=== PATIENT | male | born 1935 | race Caucasian/White ===

== ENCOUNTER 2019-04-22 19:15 | Inpatient (IN) | payer OTHER ==
[2019-04-22] MEDS ORDERED: predniSONE 20 MG TAB ONE (19:56)
[2019-04-22] MEDS ORDERED: methylPREDNISolone Sod Succ/PF 125 MG/2 ML VIAL ONE (20:08)
[2019-04-22 20:12] LABS: Mean Corpuscular HGB CONC 33.3 g/dL (32.0-36.0); Mean Corpuscular Hemoglobin 30.6 pg (27.0-31.0); Mean Corpuscular Volume 91.8 fL (78.0-98.0); Mean Platelet Volume 8.9 fL (7.4-10.4); Platelet Count 316 thou/uL (130-400); RBC Distribution Width 12.7 % (11.5-14.5); Red Blood Cell (RBC) Count 4.26 mill/uL (4.70-6.10); White Blood Cell (WBC) Count 9.6 thou/uL (4.8-10.8)
--- NOTE | 2019-04-22 20:20 | RAD ---
SINGLE VIEW OF THE CHEST: 04/22/19 COMPARISON: None. HISTORY: Dyspnea. FINDINGS: Single view of the chest shows a normal sized heart and mediastinal silhouette. Mixed alveolar/inters titial opacities are seen in the left lung which are more prominent in the left base. IMPRESSION: Mixed infiltrates in the left chest. POS: [facility]
[2019-04-22 20:27] LABS: Band 1 % (5-11); Lymphocytes 3 % (21-51); MDiff Complete? YES; Monocytes 2 % (0-10); Neutrophil 94 % (42-75); Platelet Morphology Comment Appears Adequate; RBC Morphology Normal
[2019-04-22 20:30] LABS: ALT (SGPT) 21 U/L (8-55); AST (SGOT) 23 U/L (5-34); Albumin 3.7 g/dL (3.4-4.8); Alkaline Phosphatase 118 U/L (40-110); Anion Gap 21 mmol/L (10-20); BUN (Urea Nitrogen) 30 mg/dL (8.4-25.7); Bilirubin, Total 0.5 mg/dL (0.2-1.2); Calc. Creatinine Clearance 0 mL/min (70-130); Calcium 9.5 mg/dL (7.8-10.44); Carbon Dioxide 22 mmol/L (23-31); Chloride 99 mmol/L (98-107); Estimated GFR-MDRD 56; Globulin 4.2 g/dL (2.4-3.5); Glucose 198 mg/dL (83-110); Potassium 4.7 mmol/L (3.5-5.1); Protein, Total 7.9 g/dL (5.8-8.1); Sodium 137 mmol/L (136-145)
[2019-04-22 20:58] LABS: Acetaminophen Less than 6.0 mcg/mL (10.0-30.0); Alcohol Less than 10 mg/dL (Less than 10); Salicylate Less than 8.0 mg/dL (15.0-30.0)
[2019-04-22 21:37] LABS: Lactic Acid 1.2 mmol/L (0.5-2.2)
[2019-04-22] MEDS ORDERED: cefTRIAXone\\ROCEPHIN 1 GM VIAL ONE (23:36)
[2019-04-23 01:25] VITALS: BMI 27.1
[2019-04-23] MEDS ORDERED: Acetaminophen 650 MG Suppository PR PRN (11:00)
[2019-04-23] MEDS ORDERED: Bisacodyl 5 MG TAB PO PRN (11:00)
[2019-04-23] MEDS ORDERED: Acetaminophen 325 MG TAB PO PRN (11:00)
[2019-04-23] MEDS ORDERED: Dextrose 50% Abboject 50 ML SYRINGE SLOW IVP PRN (13:31)
[2019-04-23] MEDS ORDERED: Dextrose 5% in Water 1,000 ML IV PRN (13:31)
[2019-04-23] MEDS: methylPREDNISolone Sod Succ 40 MG VIAL IVP SCH ×3 (13:32→23:14)
[2019-04-23] MEDS: Azithromycin 500 MG in Sodium Chloride 0.9% 250 ML 250 ML IVPB SCH (13:32)
[2019-04-23] MEDS ORDERED: Cyanocobalamin 1000 MCG/ML VIAL IM SCH (13:45)
[2019-04-23] MEDS: HumaLOG 300 UNITS/3 ML VIAL SC PRN ×3 (13:54→21:11)
[2019-04-23] MEDS ORDERED: Insulin Glargine 10 UNITS in Pre-Filled Syringe 1 EACH SC SCH (14:00)
[2019-04-23] MEDS ORDERED: glipiZIDE 10 MG TAB PO SCH ×3 (14:15→21:00)
[2019-04-23] MEDS: Calcium Carbonate + Vit D 250 MG TAB PO SCH ×2 (14:47→21:09)
--- NOTE | 2019-04-23 15:50 | HP ---
PRIMARY CARE PROVIDER: Unknown. CHIEF COMPLAINT: Shortness of breath. HISTORY OF PRESENT ILLNESS: Mr. Arteaga is a pleasant 84-year-old gentleman, an inmate at [facility], who was seen at [facility] on April 23, 2019. He reports that he developed a dry cough about one and half weeks ago. He denies any fevers. He reports that he has been using oxygen at 3 L/minute from 2 a.m. to 8 a.m., as well as when he takes naps. Prior to one and half weeks ago, he was not using oxygen. He also reports using his inhaler a lot without improvement in shortness of breath. He reports shortness of breath with exertion. He denies paroxysmal nocturnal dyspnea or orthopnea. REVIEW OF SYSTEMS: All systems were reviewed and found to be negative except for the pertinent positives mentioned above. PAST MEDICAL HISTORY: Diabetes mellitus type 2, COPD, emphysema, asthma, osteoarthritis, colon cancer, and right lower quadrant hernia. PAST SURGICAL HISTORY: Appendectomy, tonsillectomy, adenoidectomy, and colon resection. SOCIAL HISTORY: The patient denies tobacco use, alcohol use, or recreational drug use. FAMILY HISTORY: No family history of premature coronary artery disease. CODE STATUS: I discussed his code status. He is full code. ALLERGIES: NO KNOWN DRUG ALLERGIES. CURRENT MEDICATIONS: 1. Albuterol nebulizer p.r.n. 2. Aspirin 81 mg daily. 3. Calcium carbonate/vitamin D3 one tablet three times a day. 4. Vitamin B12 of 1000 mcg intramuscularly every month. 5. Flovent HFA 2 puffs 2 times a day. 6. Glipizide 10 mg 2 times a day. PHYSICAL EXAMINATION: GENERAL: On examination, Mr. Arteaga is awake and alert, not in acute distress. VITAL SIGNS: Blood pressure is 110/64, pulse 102, respiratory rate 19, and oxygen saturation 96% on 2 L of oxygen. He is afebrile. BMI is 21. EYES: No scleral icterus, no conjunctival pallor. ENT: Moist mucosal membranes. No oropharyngeal erythema or exudates. NECK: Supple, nontender, trachea is midline. RESPIRATORY: Accessory muscles of breathing are not active. Chest wall movements are symmetric bilaterally. He has left-sided crackles. CARDIOVASCULAR: S1 and S2 are heard, regular. Peripheral pulses palpable. ABDOMEN: Soft, nontender, bowel sounds heard. MUSCULOSKELETAL: Power is 5/5 in all 4 extremities. The patient has scoliosis. NEUROLOGIC: Cranial nerves 2 through 12 are intact. SKIN: No rashes. LYMPHATIC: No cervical lymphadenopathy. PSYCHIATRIC: Normal mood, normal affect, the patient is oriented to person, place, and time. LABORATORY DATA: Mr. Arteaga's labs and investigations were reviewed. I reviewed his electrocardiogram, which shows normal sinus rhythm, no ST changes to suggest an acute coronary syndrome. I also reviewed his chest x-ray, which shows left-sided infiltrates. He has normal white count, normocytic anemia with hemoglobin 13, normal platelet count, normal sodium, normal potassium, decreased carbon dioxide of 22, elevated anion gap of 21, elevated blood urea nitrogen of 30, normal creatinine, normal lactic acid, elevated alkaline phosphatase of 118, otherwise unremarkable LFTs and normal troponin I. ASSESSMENT AND PLAN: Mr. Arteaga is a pleasant 84-year-old gentleman, who was seen at [facility] on April 23, 2019. His problem list includes: 1. Pneumonia: Mr. Arteaga is presenting with pneumonia. He has been started on azithromycin and ceftriaxone, which I will continue. We will follow blood cultures. 2. Chronic obstructive pulmonary disease exacerbation: Mr. Arteaga also has occasional expiratory wheeze, consistent with chronic obstructive pulmonary disease exacerbation. We will start him on bronchodilators and steroids. 3. Diabetes mellitus type 2: Resume home medications, start Accu-Cheks and insulin sliding scale. 4. Osteoarthritis: This appears to be stable. Many thanks for allowing me to participate in your patient's care. Please feel free to contact me with any questions or concerns. LEVEL OF RISK: High. LEVEL OF COMPLEXITY: High. Job ID: [id number]
[2019-04-23] MEDS ORDERED: glipiZIDE 5 MG TAB PO SCH (16:30)
[2019-04-23] MEDS: Sodium Chloride 0.9% 1,000 ML IV SCH (16:47)
[2019-04-23] MEDS ORDERED: Fluticasone Propionate HFA 110 MCG AER INH SCH (18:30)
[2019-04-23] MEDS ORDERED: metFORMIN 500 MG TAB PO SCH (21:00)
[2019-04-23] MEDS: cefTRIAXone\\ROCEPHIN 1 GM in Sodium Chloride 0.9% 100 ML IVPB SCH (23:14)
[2019-04-24] MEDS: Sodium Chloride 0.9% 1,000 ML IV SCH ×3 (04:10→17:28)
[2019-04-24] MEDS: methylPREDNISolone Sod Succ 40 MG VIAL IVP SCH ×2 (05:22→10:57)
[2019-04-24 06:23] LABS: Band 3 % (5-11); Hemoglobin 10.8 g/dL (14.0-18.0); Lymphocytes 1 % (21-51); MDiff Complete? YES; Mean Corpuscular Hemoglobin 29.4 pg (27.0-31.0); Monocytes 3 % (0-10); Neutrophil 93 % (42-75); Platelet Count 319 thou/uL (130-400); Platelet Morphology Comment Appears Adequate; RBC Distribution Width 12.7 % (11.5-14.5); Red Blood Cell (RBC) Count 3.68 mill/uL (4.70-6.10); White Blood Cell (WBC) Count 14.4 thou/uL (4.8-10.8)
[2019-04-24 06:24] LABS: Anion Gap 14 mmol/L (10-20); BUN (Urea Nitrogen) 25 mg/dL (8.4-25.7); Calc. Creatinine Clearance 58 mL/min (70-130); Calcium 8.4 mg/dL (7.8-10.44); Carbon Dioxide 24 mmol/L (23-31); Chloride 108 mmol/L (98-107); Estimated GFR-MDRD 84; Glucose 294 mg/dL (83-110); Sodium 142 mmol/L (136-145)
[2019-04-24] MEDS: HumaLOG 300 UNITS/3 ML VIAL SC PRN ×4 (06:45→21:23)
[2019-04-24] MEDS: Mometasone 100 MCG HFA INHALER INH SCH ×2 (06:51→19:52)
[2019-04-24] MEDS ORDERED: Insulin Glargine 10 UNITS in Pre-Filled Syringe 1 EACH SC SCH (09:00)
[2019-04-24] MEDS: Calcium Carbonate + Vit D 250 MG TAB PO SCH ×3 (09:26→21:22)
[2019-04-24] MEDS: Enoxaparin Sodium 40 MG/0.4 ML SYRINGE SC SCH (09:27)
[2019-04-24] MEDS: metFORMIN 500 MG TAB PO SCH ×2 (09:27→17:23)
[2019-04-24] MEDS: Aspirin 81 mg Enteric Coated Tablet PO SCH (09:27)
[2019-04-24] MEDS: glipiZIDE 10 MG TAB PO SCH ×2 (09:28→15:37)
[2019-04-24] MEDS: Azithromycin 500 MG in Sodium Chloride 0.9% 250 ML 250 ML IVPB SCH (10:57)
--- NOTE | 2019-04-24 16:08 | PDOC.HOSPP ---
- Subjective Encounter Date: 04/24/19 Encounter Time: 10:20 Subjective: Pt seen for followup re: pneumonia. Feels better. - Objective Vital Signs & Weight: Vital Signs (12 hours) Temp Pulse Resp BP BP Pulse Ox 04/24/19 15:15 97.7 F 104 H 18 126/75 93 L 04/24/19 13:52 102 H 18 95 04/24/19 11:00 97.7 F 100 20 134/78 96 04/24/19 07:47 98.1 F 113 H 20 144/85 H 97 04/24/19 06:53 100 04/24/19 06:52 87 18 100 04/24/19 06:51 87 16 100 Weight Admit Weight 138 lb 14.259 oz Weight 138 lb 14.259 oz I&O: 04/23/19 04/24/19 04/25/19 06:59 06:59 06:59 Intake Total 1700 Balance 1700 Result Diagrams: 04/24/19 05:53 04/24/19 05:53 Additional Labs: Accuchecks 04/24/19 04/24/19 04/23/19 11:06 04:07 19:07 POC Glucose 304 H 304 H 311 H 04/23/19 16:02 POC Glucose 452 H Labs and MARs reviewed by nh Hospitalist ROS - Review of Systems Respiratory: reports: cough, sputum. denies: dry, shortness of breath, hemoptysis, SOB with excertion, pleuritic pain, wheezing Cardiovascular: denies: chest pain, palpitations, orthopnea, paroxysmal noc. dyspnea, edema, light headedness - Medication Medications: Active Medications Generic Name Dose Route Start Last Admin Trade Name Freq PRN Reason Stop Dose Admin Albuterol/Ipratropium 3 ml 04/23/19 13:00 04/24/19 13:52 Duoneb NEB 3 ml [id number] CLAIRE Administration Aspirin 81 mg 04/24/19 09:00 04/24/19 09:27 Ecotrin PO 81 mg DAILY CLAIRE Administration Calcium/Vitamin D 250 mg 04/23/19 15:00 04/24/19 15:37 Oscal + Vit D PO 250 mg TID CLAIRE Administration Cyanocobalamin 1,000 mcg 04/23/19 13:45 04/23/19 13:54 Vitamin B-12 IM 1,000 mcg Q28D CLAIRE Administration Enoxaparin Sodium 40 mg 04/24/19 09:00 04/24/19 09:27 Lovenox SC 40 mg 0900 CLAIRE Administration Glipizide 10 mg 04/24/19 07:30 04/24/19 15:37 Glucotrol PO 10 mg BID-AC CLAIRE Administration Azithromycin 500 mg/ Sodium 250 mls @ 250 mls/hr 04/23/19 12:00 04/24/19 10: 57 Chloride IVPB 250 mls Q24HR CLAIRE Administration Ceftriaxone Sodium 1 gm/ 100 mls @ 200 mls/hr 04/23/19 23:00 04/23/19 23:14 Sodium Chloride IVPB 100 mls Q24HR CLAIRE Administration Sodium Chloride 1,000 mls @ 75 mls/hr 04/23/19 15:30 04/24/19 09:29 Normal Saline 0.9% IV 1,000 mls .[id number] CLAIRE Administration Insulin Glargine 10 units/ 0.1 mls @ 0 mls/hr 04/24/19 09:00 04/24/19 10:55 Miscellaneous Medication SC 0.1 mls QAM CLAIRE Administration Insulin Human Lispro 0 units 04/23/19 13:31 04/24/19 11:04 Humalog SC 5 unit .MILD SLIDING SCALE PRN Administration Mild Correctional Scale Metformin HCl 250 mg 04/24/19 08:00 04/24/19 09:27 Glucophage PO 250 mg BID-WM CLAIRE Administration Methylprednisolone Sodium Succinate 40 mg 04/23/19 12:00 04/24/19 10:57 Solu-Medrol IVP 40 mg Q6HR CLAIRE Administration Mometasone Furoate 1 puff 04/24/19 06:30 04/24/19 06:51 Asmanex Hfa 100 Mcg INH 1 puff BID-RT CLAIRE Administration - Exam General Appearance: NAD Eye: anicteric sclera ENT: moist mucosa Neck: supple Heart: RRR, no rubs Respiratory: CTAB, wheezes Gastrointestinal: soft, non-tender, normal bowel sounds Musculoskeletal: normal strength Psychiatric: normal affect, normal behavior Hosp A/P (1) Pneumonia Code(s): J18.9 - PNEUMONIA, UNSPECIFIED ORGANISM Status: Acute (2) COPD exacerbation Code(s): J44.1 - CHRONIC OBSTRUCTIVE PULMONARY DISEASE W (ACUTE) EXACERBATION Status: Acute (3) DM2 (diabetes mellitus, type 2) Status: Chronic (4) Osteoarthritis Code(s): M19.90 - UNSPECIFIED OSTEOARTHRITIS, UNSPECIFIED SITE Status: Chronic - Plan continue antibiotics, out of bed/ambulate Continue IV ceftriaxone and azithromycin. Blood sugars high, change Lantus to 10 units BID.
[2019-04-24] MEDS: Insulin Glargine 20 UNITS in Pre-Filled Syringe SC SCH (21:23)
[2019-04-24] MEDS: cefTRIAXone\\ROCEPHIN 1 GM in Sodium Chloride 0.9% 100 ML IVPB SCH (23:26)
[2019-04-25] MEDS: Mometasone 100 MCG HFA INHALER INH SCH ×2 (07:22→18:34)
[2019-04-25 08:13] LABS: Calcium 8.5 mg/dL (7.8-10.44); Chloride 110 mmol/L (98-107); Potassium 3.6 mmol/L (3.5-5.1); Sodium 146 mmol/L (136-145)
[2019-04-25 08:14] LABS: Glucose 181 mg/dL (83-110)
[2019-04-25 08:15] LABS: Anion Gap 14 mmol/L (10-20); Carbon Dioxide 26 mmol/L (23-31)
[2019-04-25 08:17] LABS: Calc. Creatinine Clearance 62 mL/min (70-130); Estimated GFR-MDRD 90
[2019-04-25 08:18] LABS: BUN (Urea Nitrogen) 16 mg/dL (8.4-25.7)
[2019-04-25] MEDS: Calcium Carbonate + Vit D 250 MG TAB PO SCH ×3 (08:24→21:03)
[2019-04-25] MEDS: Aspirin 81 mg Enteric Coated Tablet PO SCH (08:24)
[2019-04-25] MEDS: glipiZIDE 10 MG TAB PO SCH ×2 (08:24→15:26)
[2019-04-25] MEDS: predniSONE 50 MG TAB PO SCH (08:24)
[2019-04-25] MEDS: metFORMIN 500 MG TAB PO SCH ×2 (08:25→17:20)
[2019-04-25] MEDS: Enoxaparin Sodium 40 MG/0.4 ML SYRINGE SC SCH (08:26)
[2019-04-25] MEDS: Sodium Chloride 0.9% 1,000 ML IV SCH ×3 (08:29→21:07)
[2019-04-25] MEDS: Azithromycin 500 MG in Sodium Chloride 0.9% 250 ML 250 ML IVPB SCH (08:35)
[2019-04-25] MEDS: Insulin Glargine 20 UNITS in Pre-Filled Syringe SC SCH ×2 (08:35→21:03)
[2019-04-25 08:39] LABS: Band 1 % (5-11); Hemoglobin 11.5 g/dL (14.0-18.0); Lymphocytes 8 % (21-51); MDiff Complete? YES; Mean Corpuscular HGB CONC 33.5 g/dL (32.0-36.0); Mean Corpuscular Hemoglobin 31.1 pg (27.0-31.0); Mean Corpuscular Volume 92.8 fL (78.0-98.0); Mean Platelet Volume 9.6 fL (7.4-10.4); Monocytes 8 % (0-10); Neutrophil 83 % (42-75); Platelet Count 273 thou/uL (130-400); Polychromasia SLIGHT = 2-3 cells (100X) (0-2/hpf); Red Blood Cell (RBC) Count 3.68 mill/uL (4.70-6.10)
[2019-04-25] MEDS: HumaLOG 300 UNITS/3 ML VIAL SC PRN ×2 (11:22→21:03)
--- NOTE | 2019-04-25 11:33 | CT ---
CTA Angio Chest W WO Con 04/25/2019 9:27 AM Indication: Shortness of breath for many years Technique: Multiple CTA images were obtained of the thorax with IV contrast. 3D reformatted images were constructed from the raw data. Comparison: Chest radiograph dated April 22, 2019 Findings: Pulmonary arteries: No definite central pulmonary embolus is evident. The lobar and segmental branch es of both lower lobes slightly limited in evaluation due to respiratory motion artifact. Heart and Great Vessels: There is a fusiform aneurysm involving the undersurface of the aortic arch measuring 2.7 x 1.3 cm in its greatest mediolateral and AP dimensions respectively. There are moderate calcifications involving thoracic aorta and coronary arteries. Lungs:There is airspace opacity involving the lingula and left lower lobe suspicious for pneumonia. T here is severe emphysema. Pleural space: There are small bilateral pleural effusions. Upper Abdomen: No acute abnormality. Osseous Structures: There is thoracolumbar spondylosis. There is prominent thoracolumbar scoliosis. Impression: 1. No definite central pulmonary embolus demonstrated. Motion artifact limits evaluation of the lobar and segmental pulmonary branches of both lower lobes. 2. Left lingular and left lower lobe pneumonia. 3. Severe emphysema 4. Fusiform aneurysm involving the inferior aspect of the aortic arch measuring 2.7 x 1.3 cm. 5. Small bilateral pleural effusions may reflect sequela of volume overload or mild CHF.
--- NOTE | 2019-04-25 13:37 | PDOC.HOSPP ---
- Subjective Encounter Date: 04/25/19 Encounter Time: 08:00 Subjective: Pt seen for followup re: pneumonia. Feels better. - Objective Vital Signs & Weight: Vital Signs (12 hours) Temp Pulse Resp BP Pulse Ox 04/25/19 12:13 110 H 24 H 04/25/19 08:00 97.8 F 100 18 155/69 H 95 04/25/19 07:23 95 18 04/25/19 04:13 96 Weight Admit Weight 138 lb 14.259 oz Weight 138 lb 14.259 oz I&O: 04/24/19 04/25/19 04/26/19 06:59 06:59 06:59 Intake Total 1700 2180 Balance 1700 2180 Result Diagrams: 04/25/19 06:21 04/25/19 07:58 Additional Labs: Accuchecks 04/25/19 04/25/19 04/24/19 11:24 04:30 21:22 POC Glucose 232 H 260 H 280 H 04/24/19 16:16 POC Glucose 247 H Labs and MARs reviewed by me. Hospitalist ROS - Review of Systems Respiratory: reports: cough, sputum. denies: dry, shortness of breath, hemoptysis, SOB with excertion, pleuritic pain, wheezing Cardiovascular: denies: chest pain, palpitations, orthopnea, paroxysmal noc. dyspnea, edema, light headedness - Medication Medications: Active Medications Generic Name Dose Route Start Last Admin Trade Name Freq PRN Reason Stop Dose Admin Albuterol/Ipratropium 3 ml 04/23/19 13:00 04/25/19 12:13 Duoneb NEB 3 ml [id number] CLAIRE Administration Aspirin 81 mg 04/24/19 09:00 04/25/19 08:24 Ecotrin PO 81 mg DAILY CLAIRE Administration Calcium/Vitamin D 250 mg 04/23/19 15:00 04/25/19 08:24 Oscal + Vit D PO 250 mg TID CLAIRE Administration Cyanocobalamin 1,000 mcg 04/23/19 13:45 04/23/19 13:54 Vitamin B-12 IM 1,000 mcg Q28D CLAIRE Administration Enoxaparin Sodium 40 mg 04/24/19 09:00 04/25/19 08:26 Lovenox SC 40 mg 0900 CLAIRE Administration Glipizide 10 mg 04/24/19 07:30 04/25/19 08:24 Glucotrol PO 10 mg BID-AC CLAIRE Administration Azithromycin 500 mg/ Sodium 250 mls @ 250 mls/hr 04/23/19 12:00 04/25/19 08: 35 Chloride IVPB 250 mls Q24HR CLAIRE Administration Ceftriaxone Sodium 1 gm/ 100 mls @ 200 mls/hr 04/23/19 23:00 04/24/19 23:26 Sodium Chloride IVPB 100 mls Q24HR CLAIRE Administration Sodium Chloride 1,000 mls @ 75 mls/hr 04/23/19 15:30 04/25/19 08:29 Normal Saline 0.9% IV 1,000 mls .[id number] CLAIRE Administration Insulin Glargine 20 units/ 0.2 mls @ 0 mls/hr 04/24/19 21:00 04/25/19 08:35 Miscellaneous Medication SC 0.2 mls BID CLAIRE Administration Insulin Human Lispro 0 units 04/23/19 13:31 04/25/19 11:22 Humalog SC 3 unit .MILD SLIDING SCALE PRN Administration Mild Correctional Scale Metformin HCl 250 mg 04/24/19 08:00 04/25/19 08:25 Glucophage PO 250 mg BID-WM CLAIRE Administration Mometasone Furoate 1 puff 04/24/19 06:30 04/25/19 07:22 Asmanex Hfa 100 Mcg INH 1 puff BID-RT CLAIRE Administration Prednisone 50 mg 04/25/19 08:00 04/25/19 08:24 Prednisone PO 50 mg QAM-WM CLAIRE Administration - Exam General Appearance: NAD Eye: anicteric sclera ENT: moist mucosa Neck: supple Heart: RRR Respiratory: no ronchi, normal chest expansion, wheezes Gastrointestinal: soft, non-tender, normal bowel sounds Neurological: no weakness Psychiatric: normal affect, normal behavior Hosp A/P (1) Pneumonia Code(s): J18.9 - PNEUMONIA, UNSPECIFIED ORGANISM Status: Acute (2) COPD exacerbation Code(s): J44.1 - CHRONIC OBSTRUCTIVE PULMONARY DISEASE W (ACUTE) EXACERBATION Status: Acute (3) DM2 (diabetes mellitus, type 2) Status: Chronic (4) Hypernatremia Code(s): E87.0 - HYPEROSMOLALITY AND HYPERNATREMIA Status: Acute (5) Osteoarthritis Code(s): M19.90 - UNSPECIFIED OSTEOARTHRITIS, UNSPECIFIED SITE Status: Chronic - Plan continue antibiotics Switch to oral antibiotics. Pt encouraged to maintain good fluid intake. Gentle IV hydration. Check CT to r/o PE (hypoxia, tachycardia) Continue accuchecks and insulin sliding scale. Likely discharge in 24 h.
[2019-04-25] MEDS ORDERED: Cefdinir 300 MG CAP PO SCH (13:45)
[2019-04-25] MEDS: Cefdinir 300 MG CAP PO SCH (21:03)
[2019-04-26 06:02] LABS: Hemoglobin 11.7 g/dL (14.0-18.0); Mean Corpuscular HGB CONC 33.4 g/dL (32.0-36.0); Mean Corpuscular Hemoglobin 30.8 pg (27.0-31.0); Mean Corpuscular Volume 92.1 fL (78.0-98.0); Mean Platelet Volume 9.3 fL (7.4-10.4); Platelet Count 288 thou/uL (130-400); RBC Distribution Width 12.9 % (11.5-14.5); White Blood Cell (WBC) Count 11.5 thou/uL (4.8-10.8)
[2019-04-26 06:18] LABS: Anion Gap 16 mmol/L (10-20); BUN (Urea Nitrogen) 15 mg/dL (8.4-25.7); Calc. Creatinine Clearance 63 mL/min (70-130); Calcium 8.7 mg/dL (7.8-10.44); Carbon Dioxide 24 mmol/L (23-31); Chloride 107 mmol/L (98-107); Estimated GFR-MDRD Greater than 90; Glucose 126 mg/dL (83-110); Potassium 3.5 mmol/L (3.5-5.1); Sodium 143 mmol/L (136-145)
[2019-04-26] MEDS: Mometasone 100 MCG HFA INHALER INH SCH (06:39)
[2019-04-26 06:56] LABS: Lymphocytes 16 % (21-51); MDiff Complete? YES; Monocytes 7 % (0-10); Myelocyte 1 % (0-0); Neutrophil 76 % (42-75); Nucleated RBC 1 % (0)
[2019-04-26] MEDS: Aspirin 81 mg Enteric Coated Tablet PO SCH (07:56)
[2019-04-26] MEDS: Enoxaparin Sodium 40 MG/0.4 ML SYRINGE SC SCH (07:56)
[2019-04-26] MEDS: metFORMIN 500 MG TAB PO SCH ×2 (07:56→16:48)
[2019-04-26] MEDS: glipiZIDE 10 MG TAB PO SCH ×2 (07:56→16:48)
[2019-04-26] MEDS: Calcium Carbonate + Vit D 250 MG TAB PO SCH ×2 (07:57→15:00)
[2019-04-26] MEDS: Insulin Glargine 20 UNITS in Pre-Filled Syringe SC SCH (07:57)
[2019-04-26] MEDS: predniSONE 50 MG TAB PO SCH (07:57)
[2019-04-26] MEDS: Cefdinir 300 MG CAP PO SCH (09:43)
[2019-04-26] MEDS: Sodium Chloride 0.9% 1,000 ML IV SCH (10:31)
--- NOTE | 2019-04-26 16:50 | DIS ---
DATE OF ADMISSION: 04/23/2019 DATE OF DISCHARGE: 04/26/2019 PRIMARY CARE PROVIDER: Unknown. DISCHARGE DIAGNOSES: 1. Pneumonia. 2. Chronic obstructive pulmonary disease exacerbation. 3. Hypernatremia. 4. Thoracic aortic aneurysm. CONDITION: Condition of the patient on the day of discharge: Stable. I assessed Mr. Arteaga on the day of discharge. He denies any chest pain or shortness of breath. Vital signs are stable. S1 and S2 are heard, regular. Lungs are clear to auscultation bilaterally. DISCHARGE MEDICATIONS: 1. ProAir RespiClick 90 mcg inhalation 2 times a day. 2. Aspirin 81 mg daily. 3. Calcium carbonate plus vitamin D 250 mg 3 times a day. 4. Vitamin B12 of 1000 mcg intramuscularly every 4 weeks. 5. Flovent HFA 110 mcg inhalation 2 times a day. 6. Glipizide 10 mg 2 times a day. 7. Metformin 250 mg 2 times a day. 8. Omnicef 300 mg 2 times a day for 7 more days. 9. Oral prednisone taper. HOSPITAL COURSE: Mr. Arteaga is a pleasant 84-year-old gentleman, who was admitted to [facility] on April 23, 2019, for pneumonia and COPD exacerbation. He was treated with intravenous antibiotics and subsequently stepped down to oral antibiotics. He was also treated with intravenous steroids and stepped down to oral steroids. He continued to improve clinically. He had CT angiogram of the chest, which did not show any definite central pulmonary embolus. He had left lingular and left lower lobe pneumonia. He also had severe emphysema and fusiform aneurysm involving the inferior aspect of the aortic arch measuring 2.7 x 1.3 cm. He has been advised to follow up with his primary care provider [facility] for management of the aneurysm. On the day of discharge, he has white count of 11,500, hemoglobin 11.7, and platelet count 288,000. Normal electrolytes and normal creatinine. Many thanks for allowing me to participate in Mr. Arteaga's care. Please feel free to contact me with any questions or concerns. DISCHARGE DESTINATION: [facility], from where the patient was admitted to the hospital. TIME SPENT: Total amount of time spent coordinating this discharge: 32 minutes. Job ID: [id number]
[2019-04-26 17:06] VITALS: BP 171/102; TEMP 97.7
[2019-04-26] MEDS ORDERED: Amoxicillin/Potassium Clav 875 MG TAB PO SCH (21:00)
== END 2019-04-26 19:05 | DRG 190 ==
LOC: ERS 19:15 → EEVIPCON 19:15 → T4-B 04-23 00:38
PROVIDERS: ADMIT Hospitalist; ATTEND Hospitalist
DX: J43.9 Emphysema, unspecified (principal); J18.9 Pneumonia, unspecified organism; E87.0 Hyperosmolality and hypernatremia; C18.9 Malignant neoplasm of colon, unspecified; I71.2 Thoracic aortic aneurysm, without rupture; J45.909 Unspecified asthma, uncomplicated; M19.90 Unspecified osteoarthritis, unspecified site; H54.7 Unspecified visual loss; K46.9 Unspecified abdominal hernia without obstruction or gangrene; E11.9 Type 2 diabetes mellitus without complications; D64.9 Anemia, unspecified; Z90.49 Acquired absence of other specified parts of digestive tract
CPT/HCPCS: 36415; 36416; 71045; 71275; 80048; 80053; 80307; 83605; 84484; 85025; 87040; 93005; 94640; 96365; 96375; J0456; J0696; J1650; J1815; J2920; J2930; J3420; J3490; J7050; J7512; J7620

== ENCOUNTER 2019-10-07 20:12 | Emergency (ER) | payer OTHER ==
--- NOTE | 2019-10-07 21:07 | RAD ---
XR Chest 1 View Portable HISTORY: Shortness of breath x2 days COMPARISON: 04/22/2019 exam. FINDINGS: Heart size is within normal limits. Chronic lung changes are seen. The parenchymal changes in the left base are stable as compared to the prior exam. Scoliotic changes spine is noted. IMPRESSION: Severe chronic lung change.
[2019-10-07] MEDS ORDERED: methylPREDNISolone Sod Succ/PF 125 MG/2 ML VIAL ONE (21:52)
[2019-10-07] MEDS ORDERED: Doxycycline 100 MG CAP PO SCH (22:00)
== END 2019-10-08 01:06 | disposition short-term general hospital (02) ==
LOC: ERS 20:12 → EEVIPCON 20:12 → ERS 10-08 01:06
DX: J44.9 Chronic obstructive pulmonary disease, unspecified (principal); E11.9 Type 2 diabetes mellitus without complications; M19.90 Unspecified osteoarthritis, unspecified site; Z79.51 Long term (current) use of inhaled steroids; Z79.82 Long term (current) use of aspirin; Z79.899 Other long term (current) drug therapy
CPT/HCPCS: 36415; 71045; 83880; 84484; 87804; 93005; 96374; J2930; J7620